=== PATIENT | female | born 1985 | race American Indian/Alaskan Native ===

== ENCOUNTER 2018-03-12 05:56 | Inpatient (IN) | payer MEDICAID, OTHER ==
[2018-03-12] MEDS ORDERED: BICITRA PO ONE (06:08)
[2018-03-12] MEDS ORDERED: REGLAN IV ONE (06:08)
[2018-03-12] MEDS ORDERED: PEPCID IV ONE (06:08)
[2018-03-12] MEDS: LACTATED RINGERS 1,000 ML IV SCH ×2 (06:35→07:46)
[2018-03-12] MEDS ORDERED: PITOCin/NS 20 UNIT/1000ML DRIP 20 UNITS/1,000 ML BAG IV SCH (07:00)
[2018-03-12] MEDS ORDERED: ANCEF/STERILE WATER 2 GM/20 ML 2 GM/20 ML SYRINGE IV NR (07:00)
--- NOTE | 2018-03-12 07:21 | Anesthesia Consultation ---
Anesthesia Consult and Med Hx Date of service: 03/12/18 - Airway Anesthetic Teeth Evaluation: Good ROM Head & Neck: Adequate Mental/Hyoid Distance: Adequate Mallampati Class: Class III Intubation Access Assessment: Possibly Difficult - Pre-Operative Health Status ASA Pre-Surgery Classification: ASA3 Proposed Anesthetic Plan: Epidural, Spinal - Pulmonary Hx Asthma: No COPD: No Hx Pneumonia: No - Cardiovascular System Hx Hypertension: No - Central Nervous System Hx Seizures: No Hx Psychiatric Problems: No - Endocrine Hx Renal Disease: No Hx End Stage Renal Disease: No Hx Hypothyroidism: No Hx Hyperthyroidism: No - Hematic Hx Anemia: No Hx Sickle Cell Disease: No - Other Systems Hx Alcohol Use: No Hx Obesity: Yes (BMI 43.9)
--- NOTE | 2018-03-12 07:22 | Anesthesia Day of Surgery ---
Anesthesia Day of Surgery - Day of Surgery Patient Examined: Yes Patient H&P Reviewed: Yes Patient is NPO: Yes
[2018-03-12 07:46] LABS: Basophils % (Auto) 0.7 % (0.0-1.8); Eosinophils # (Auto) 0.1 K/mm3 (0.0-0.4); Eosinophils % (Auto) 1.4 % (0.0-4.3); Hematocrit 36.4 % (30.3-42.9); Hemoglobin 12.4 gm/dl (10.1-14.3); Lymphocytes # (Auto) 2.4 K/mm3 (1.2-5.4); Lymphocytes % (Auto) 39.4 % (13.4-35.0); Mean Corpuscular HGB Conc 34 % (30-34); Mean Corpuscular Hemoglobin 30 pg (28-32); Mean Corpuscular Volume 86 fl (79-97); Monocytes # (Auto) 0.8 K/mm3 (0.0-0.8); Monocytes % (Auto) 13.5 % (0.0-7.3); Platelet Count 165 K/mm3 (140-440); Red Blood Count 4.21 M/mm3 (3.65-5.03); Red Cell Distribution Width 13.5 % (13.2-15.2)
--- NOTE | 2018-03-12 07:58 | History and Physical Report ---
History of Present Illness Date of examination: 03/12/18 Date of admission: 03/12/18 05:56 Chief complaint: Induction of labor History of present illness: Pt is a 32 yo BF EDC 03/18/18; EGA 39 1/7 weeks presented for C Section, but after further review of her records and [facility] report, there was no indication for C Section. She will therefore be admitted for induction of labor. She received care at [facility] since 7 weeks and course has been unremarkable except for Morbid Obesity - followed by [facility] who recommended delivery at 39 weeks. records are available and GBS is Negative. Past History Past Medical History: no pertinent history Past Surgical History: other (Laparoscopic salpingectomy for ectopic ) Family/Genetic History: none Social history: no significant social history, single - Obstetrical History Expected Date of Delivery: 03/18/18 Actual Gestation: 39 Week(s) 1 Day(s) : 1 Medications and Allergies Allergies Allergy/AdvReac Type Severity Reaction Status Date / Time No Known Allergies Allergy Verified 01/06/15 14:19 Home Medications Medication Instructions Recorded Confirmed Last Taken Type Tablet 1 tab PO QDAY 01/06/15 01/06/15 01/06/15 12:00 History HYDROcodone/APAP 5-325 [[place] 1 each PO Q6HR PRN #30 tablet 01/13/15 Unknown Rx 5/325] Cyclobenzaprine [Flexeril] 10 mg PO TID PRN #20 tablet 02/15/16 Unknown Rx Ibuprofen [Motrin] 600 mg PO Q8H PRN #30 tablet 02/15/16 Unknown Rx Active Meds: Active Medications Diphenhydramine HCl (Benadryl) 12.5 mg IV Q2H PRN PRN Reason: Itching Hydromorphone HCl (Dilaudid) 0.5 mg IV Q5M PRN PRN Reason: Breakthrough Pain Stop: 03/12/18 14:00 Cefazolin Sodium (Ancef/Sterile Water 2 Gm/20 Ml) 2 gm in 20 mls @ 80 mls/hr IV PREOP NR; Protocol Stop: 03/12/18 23:45 Lactated Ringer's (Lactated Ringers) 1,000 mls @ 2,250 mls/hr IV PREOP NAFISA Stop: 03/13/18 07:27 Last Admin: 03/12/18 07:46 Dose: 2,250 mls/hr Oxytocin/Sodium Chloride (Pitocin/Ns 20 Unit/1000ml Drip) 20 units in 1,000 mls @ 0 mls/hr IV TITR NAFISA Ketorolac Tromethamine (Toradol) 30 mg IV Q6H PRN PRN Reason: Pain, Moderate (4-6) Stop: 03/17/18 07:59 Naloxone HCl (Narcan 0.4 Mg/1 Ml) 0.2 mg IV Q2MIN PRN PRN Reason: Res Rate </= 8 or 02 SAT < 92% Ondansetron HCl (Zofran) 4 mg IV Q8H PRN PRN Reason: Nausea And Vomiting Promethazine HCl (Phenergan) 25 mg PO Q6H PRN PRN Reason: Nausea And Vomiting Promethazine HCl (Phenergan) 25 mg [place] Q6H PRN PRN Reason: Nausea And Vomiting Sodium Chloride (Sodium Chloride Flush Syringe 10 Ml) 10 ml IV PRN PRN PRN Reason: flush Review of Systems All systems: negative - Vital Signs Vital signs: Vital Signs Temp Pulse Resp BP Pulse Ox 98.8 F 85 18 119/77 99 03/12/18 06:22 03/12/18 06:22 03/12/18 06:22 03/12/18 06:22 03/12/18 06:22 Temp Pulse Resp BP Pulse Ox 98.8 F 82 18 119/77 99 03/12/18 06:22 03/12/18 06:56 03/12/18 06:22 03/12/18 06:25 03/12/18 06:56 - Physical Exam Breasts: Positive: deferred Cardiovascular: Regular rate Lungs: Positive: Clear to auscultation Abdomen: Positive: normal appearance Genitourinary (Female): Positive: normal external genitalia Vagina: Positive: normal moisture Uterus: Positive: enlarged Extremities: Positive: normal - Obstetrical FHR: category 1 Uterine Contraction Monitor Mode: External Cervical Dilatation: 1 (per nurse) Cervical Effacement Percentage: 50 (per nurse) Uterine Contraction Pattern: Irregular Results Result Diagrams: 03/12/18 06:35 Abnormal lab results 03/12/18 Range/Units 06:35 [place] % (Auto) 13.5 H (0.0-7.3) % All other labs normal. Assessment and Plan - Patient Problems (1) 39 weeks gestation of Onset Date: 03/12/18 Current Visit: Yes Status: Acute Plan to address problem: A: IUP @ 39 1/7 weeks Morbid obesity P: Admit to L&D for cervidil/pitocin induction of labor (2) Morbid obesity Onset Date: 03/12/18 Current Visit: Yes Status: Acute
[2018-03-12] MEDS ORDERED: PHENERGAN PO PRN (08:00)
[2018-03-12] MEDS ORDERED: PHENERGAN PR PRN (08:00)
[2018-03-12] MEDS ORDERED: DILAUDID IV PRN (08:00)
[2018-03-12] MEDS ORDERED: SODIUM CHLORIDE FLUSH SYRINGE 10 ML IV PRN (08:00)
[2018-03-12] MEDS ORDERED: NARCAN 0.4 MG/1 ML IV PRN (08:00)
[2018-03-12] MEDS ORDERED: ZOFRAN IV PRN (08:00)
[2018-03-12] MEDS ORDERED: TORADOL IV PRN (08:00)
[2018-03-12] MEDS ORDERED: BENADRYL IV PRN (08:00)
[2018-03-12] MEDS ORDERED: CERVIDIL VG NR (10:30)
[2018-03-12] MEDS: TYLENOL PO PRN (21:30)
[2018-03-13] MEDS ORDERED: PITOCin/NS 30 UNIT/500ML 30,000 MILLIUNITS/500 ML BAG IV ONE (00:12)
[2018-03-13] MEDS ORDERED: SUBLIMAZE IV ONE (01:28)
[2018-03-13] MEDS: STADOL IV PRN ×2 (01:38→03:28)
[2018-03-13] MEDS: LACTATED RINGERS 1,000 ML IV SCH ×2 (05:11→05:42)
[2018-03-13] MEDS ORDERED: ePHEDrine SULFATE ONE (05:14)
[2018-03-13] MEDS ORDERED: NARCAN 2 MG/2 ML IV PRN (05:44)
[2018-03-13] MEDS ORDERED: ePHEDrine SULFATE IV PRN (05:44)
[2018-03-13] MEDS ORDERED: fentaNYL-BUPIV 2 MCG/ML-0.125% 200 MCG/100 ML BAG EPIDURAL SCH (06:00)
[2018-03-13] MEDS ORDERED: LACTATED RINGERS 1,000 ML ONE (09:28)
[2018-03-13] MEDS: TYLENOL PO PRN (09:40)
[2018-03-13] MEDS ORDERED: LACTATED RINGERS 1,000 ML IV SCH (10:00)
--- NOTE | 2018-03-13 10:10 | Progress Note ---
Assessment and Plan - Patient Problems (1) 39 weeks gestation of Onset Date: 03/12/18 Current Visit: Yes Status: Acute Plan to address problem: A: IUP @ 39 2/7 weeks Morbid obesity P: Continue pitocin induction of labor Expectant vaginal delivery (2) Morbid obesity Onset Date: 03/12/18 Current Visit: Yes Status: Acute Subjective - Subjective Date of service: 03/13/18 Principal diagnosis: IUP @ 39 2/7 weeks Interval history: Pt is a 32 yo BF EDC 03/18/18; EGA 39 2/7 weeks admitted for induction of labor due to Morbid Obesity. She received cervidil, followed by pitocin, and is currently on pitocin 8mu/min and gregor q 3 mins with epidural in place. Patient reports: loss of fluid (AROM clear fluid), movement normal, contractions, no new complaints, no vaginal bleeding Objective - Vital Signs Vital Signs: Vital Signs - 12hr 03/12/18 03/12/18 03/12/18 22:33 22:39 22:43 Temperature Pulse Rate 87 88 74 Respiratory Rate Blood Pressure Blood Pressure [Left] O2 Sat by Pulse 97 99 98 Oximetry 03/12/18 03/13/18 03/13/18 23:31 00:30 02:48 Temperature Pulse Rate 79 83 71 Respiratory Rate Blood Pressure 101/69 115/69 Blood Pressure [Left] O2 Sat by Pulse 96 Oximetry 03/13/18 03/13/18 03/13/18 03:29 03:35 05:56 Temperature 97.9 F Pulse Rate 68 68 88 Respiratory 18 Rate Blood Pressure 127/81 Blood Pressure 127/81 [Left] O2 Sat by Pulse 100 Oximetry 03/13/18 03/13/18 03/13/18 06:04 06:06 06:08 Temperature Pulse Rate 74 85 72 Respiratory Rate Blood Pressure 111/72 97/74 103/61 Blood Pressure [Left] O2 Sat by Pulse 100 Oximetry 03/13/18 03/13/18 03/13/18 06:09 06:10 06:12 Temperature Pulse Rate 78 80 74 Respiratory Rate Blood Pressure 106/61 103/59 Blood Pressure [Left] O2 Sat by Pulse 100 Oximetry 03/13/18 03/13/18 03/13/18 06:14 06:15 06:16 Temperature Pulse Rate 73 70 75 Respiratory Rate Blood Pressure 102/58 103/60 Blood Pressure [Left] O2 Sat by Pulse 100 Oximetry 03/13/18 03/13/18 03/13/18 06:18 06:19 06:20 Temperature Pulse Rate 75 76 73 Respiratory Rate Blood Pressure 101/58 98/55 Blood Pressure [Left] O2 Sat by Pulse 100 Oximetry 03/13/18 03/13/18 03/13/18 06:22 06:24 06:26 Temperature Pulse Rate 68 67 67 Respiratory Rate Blood Pressure 106/59 104/59 99/54 Blood Pressure [Left] O2 Sat by Pulse 100 Oximetry 03/13/18 03/13/18 03/13/18 06:28 06:30 06:32 Temperature Pulse Rate 71 70 73 Respiratory Rate Blood Pressure 102/56 104/56 105/57 Blood Pressure [Left] O2 Sat by Pulse 99 Oximetry 03/13/18 03/13/18 03/13/18 06:34 06:35 06:36 Temperature Pulse Rate 74 70 70 Respiratory Rate Blood Pressure 103/58 100/57 Blood Pressure [Left] O2 Sat by Pulse 100 Oximetry 03/13/18 03/13/18 03/13/18 06:38 06:40 06:42 Temperature Pulse Rate 67 67 68 Respiratory Rate Blood Pressure 106/60 101/58 101/60 Blood Pressure [Left] O2 Sat by Pulse 100 Oximetry 03/13/18 03/13/18 03/13/18 06:44 06:46 06:48 Temperature Pulse Rate 68 71 69 Respiratory Rate Blood Pressure 102/58 98/60 101/57 Blood Pressure [Left] O2 Sat by Pulse 100 Oximetry 03/13/18 03/13/18 03/13/18 06:50 06:52 06:54 Temperature Pulse Rate 65 69 70 Respiratory Rate Blood Pressure 98/56 106/65 107/64 Blood Pressure [Left] O2 Sat by Pulse 100 100 Oximetry 03/13/18 03/13/18 03/13/18 06:56 06:58 06:59 Temperature Pulse Rate 66 69 73 Respiratory Rate Blood Pressure 102/62 103/61 Blood Pressure [Left] O2 Sat by Pulse 100 Oximetry 03/13/18 03/13/18 03/13/18 07:00 07:02 07:04 Temperature Pulse Rate 70 68 70 Respiratory Rate Blood Pressure 100/58 98/58 95/58 Blood Pressure [Left] O2 Sat by Pulse Oximetry 03/13/18 03/13/18 03/13/18 07:05 07:06 07:08 Temperature Pulse Rate 73 63 69 Respiratory Rate Blood Pressure 107/66 104/64 Blood Pressure [Left] O2 Sat by Pulse 100 Oximetry 03/13/18 03/13/18 03/13/18 07:10 07:12 07:14 Temperature 98.3 F Pulse Rate 65 85 79 Respiratory 20 Rate Blood Pressure 103/62 99/61 103/65 Blood Pressure [Left] O2 Sat by Pulse 100 100 Oximetry 03/13/18 03/13/18 03/13/18 07:16 07:18 07:20 Temperature Pulse Rate 67 64 68 Respiratory Rate Blood Pressure 102/64 100/61 107/65 Blood Pressure [Left] O2 Sat by Pulse 100 Oximetry 03/13/18 03/13/18 03/13/18 07:22 07:24 07:26 Temperature Pulse Rate 80 79 68 Respiratory Rate Blood Pressure 109/67 102/58 102/61 Blood Pressure [Left] O2 Sat by Pulse 100 Oximetry 03/13/18 03/13/18 03/13/18 07:28 07:29 07:30 Temperature Pulse Rate 63 78 63 Respiratory Rate Blood Pressure 101/60 103/65 Blood Pressure [Left] O2 Sat by Pulse 100 Oximetry 03/13/18 03/13/18 03/13/18 07:32 07:34 07:39 Temperature Pulse Rate 64 70 66 Respiratory Rate Blood Pressure 98/61 100/61 Blood Pressure [Left] O2 Sat by Pulse 100 99 Oximetry 03/13/18 03/13/18 03/13/18 07:45 07:49 07:50 Temperature Pulse Rate 68 78 74 Respiratory Rate Blood Pressure 93/51 Blood Pressure [Left] O2 Sat by Pulse 100 100 Oximetry 03/13/18 03/13/18 03/13/18 07:55 08:00 08:04 Temperature Pulse Rate 69 72 66 Respiratory Rate Blood Pressure 95/55 Blood Pressure [Left] O2 Sat by Pulse 99 99 Oximetry 03/13/18 03/13/18 03/13/18 08:05 08:09 08:15 Temperature Pulse Rate 68 67 67 Respiratory Rate Blood Pressure Blood Pressure [Left] O2 Sat by Pulse 100 99 99 Oximetry 03/13/18 03/13/18 03/13/18 08:20 08:25 08:30 Temperature Pulse Rate 70 72 70 Respiratory Rate Blood Pressure 103/56 Blood Pressure [Left] O2 Sat by Pulse 99 100 100 Oximetry 03/13/18 03/13/18 03/13/18 08:34 08:36 08:40 Temperature Pulse Rate 70 67 66 Respiratory Rate Blood Pressure 99/56 Blood Pressure [Left] O2 Sat by Pulse 100 99 Oximetry 03/13/18 03/13/18 03/13/18 08:45 08:50 08:51 Temperature Pulse Rate 67 61 66 Respiratory Rate Blood Pressure 105/59 Blood Pressure [Left] O2 Sat by Pulse 100 100 Oximetry 03/13/18 03/13/18 03/13/18 08:55 09:00 09:04 Temperature Pulse Rate 67 66 72 Respiratory Rate Blood Pressure 101/61 Blood Pressure [Left] O2 Sat by Pulse 100 100 Oximetry 03/13/18 03/13/18 03/13/18 09:05 09:10 09:15 Temperature Pulse Rate 86 67 69 Respiratory Rate Blood Pressure Blood Pressure [Left] O2 Sat by Pulse 99 100 100 Oximetry 03/13/18 03/13/18 03/13/18 09:20 09:25 09:30 Temperature Pulse Rate 62 64 73 Respiratory Rate Blood Pressure 101/59 Blood Pressure [Left] O2 Sat by Pulse 100 100 100 Oximetry 03/13/18 03/13/18 03/13/18 09:35 09:40 09:45 Temperature Pulse Rate 67 65 62 Respiratory Rate Blood Pressure 104/64 Blood Pressure [Left] O2 Sat by Pulse 99 100 100 Oximetry 03/13/18 03/13/18 03/13/18 09:49 09:50 09:55 Temperature Pulse Rate 63 66 64 Respiratory Rate Blood Pressure 107/66 Blood Pressure [Left] O2 Sat by Pulse 100 100 Oximetry 03/13/18 03/13/18 03/13/18 10:00 10:05 10:10 Temperature Pulse Rate 85 62 62 Respiratory Rate Blood Pressure 104/67 Blood Pressure [Left] O2 Sat by Pulse 99 100 100 Oximetry - Exam Abdomen: Present: normal appearance, soft Uterus: Present: normal FHR: category 1 Uterine Contraction Monitor Mode: External Cervical Dilatation: 8 Cervical Effacement Percentage: 100 station: 0 Uterine Contraction Pattern: Regular Uterine Tone Measurement Phase: Contraction Uterine Contraction Intensity: Moderate - Labs Labs: Abnormal Labs 03/12/18 06:35 Lymph % (Auto) 39.4 H [place] % (Auto) 13.5 H Laboratory Tests 03/12/18 03/12/18 06:35 06:35 WBC 6.1 RBC 4.21 Hgb 12.4 Hct 36.4 MCV 86 MCH 30 MCHC 34 RDW 13.5 Plt Count 165 Lymph % (Auto) 39.4 H [place] % (Auto) 13.5 H Eos % (Auto) 1.4 Baso % (Auto) 0.7 Lymph # 2.4 [place] # 0.8 Eos # 0.1 Baso # 0.0 Seg Neutrophils % 45.0 Seg Neutrophils # 2.7 Blood Type A POSITIVE Antibody Screen Negative
--- NOTE | 2018-03-13 12:21 | Procedure Note ---
OB Delivery Note - Delivery Date of Delivery: 03/13/18 Surgeon: LAQUITA ORELLANA Estimated blood loss: 200cc - Vaginal Delivery presentation: vertex Delivery position: OA Delivery induction: cervidil Delivery augmentation: rupture of membranes, pitocin Delivery monitor: external FHT, external uterine Route of delivery: Delivery placenta: spontaneous Delivery cord: nuchal cord (x1), 3 umbilical vessels Episiotomy: none Delivery laceration: 1st degree, vaginal side wall Delivery repair: vicryl Anesthesia: epidural Delivery comments: Infant delivered OA and placed on Mom's chest for [id number] bonding and delayed cord clamping, cut by GrandMa - Infant A at 1 minute: 8 at 5 minutes: 9 Gender: Male (3120gms)
[2018-03-13] MEDS ORDERED: ZOFRAN IV PRN (12:24)
[2018-03-13] MEDS ORDERED: PHENERGAN PR PRN (12:24)
[2018-03-13] MEDS ORDERED: BENADRYL PO PRN (12:24)
[2018-03-13] MEDS ORDERED: MILK OF MAGNESIA PO PRN (12:24)
[2018-03-13] MEDS ORDERED: DULCOLAX PR PRN (12:24)
[2018-03-13] MEDS ORDERED: TYLENOL PO PRN (12:24)
[2018-03-13] MEDS ORDERED: PHENERGAN PO PRN (12:24)
[2018-03-13] MEDS ORDERED: LANSINOH TP PRN (12:24)
[2018-03-13] MEDS ORDERED: TUCKS PAD TP PRN (12:24)
[2018-03-13] MEDS ORDERED: SODIUM CHLORIDE FLUSH SYRINGE 10 ML IV NR (13:00)
[2018-03-13] MEDS ORDERED: PITOCin/NS 20 UNIT/1000ML DRIP 20 UNITS/1,000 ML BAG IV SCH (13:00)
[2018-03-13] MEDS ORDERED: TUCKS PAD TP ONE (16:00)
[2018-03-13] MEDS: MOTRIN PO SCH (18:10)
[2018-03-13] MEDS: COLACE PO SCH (23:15)
[2018-03-13] MEDS: FEOSOL PO SCH (23:15)
[2018-03-14 00:51] LABS: Hematocrit 33.1 % (30.3-42.9); Hemoglobin 11.1 gm/dl (10.1-14.3)
[2018-03-14] MEDS: NORCO 5/325 PO PRN ×2 (05:47→13:00)
[2018-03-14] MEDS ORDERED: PRENATAL VITAMIN PO SCH (10:00)
[2018-03-14] MEDS: COLACE PO SCH ×2 (10:27→21:35)
[2018-03-14] MEDS: FEOSOL PO SCH ×2 (10:28→21:35)
[2018-03-14] MEDS: MOTRIN PO SCH ×2 (10:50→21:35)
[2018-03-14] MEDS ORDERED: BOOSTRIX IM ONE (12:24)
[2018-03-14] MEDS ORDERED: M-M-R II VACCINE SUB-Q ONE (12:24)
--- NOTE | 2018-03-14 14:54 | Progress Note ---
Assessment and Plan - Patient Problems (1) 39 weeks gestation of Onset Date: 03/12/18 Current Visit: Yes Status: Resolved (2) Morbid obesity Onset Date: 03/12/18 Current Visit: Yes Status: Chronic (3) (normal spontaneous vaginal delivery) Onset Date: 03/14/18 Current Visit: Yes Status: Resolved Plan to address problem: A: S/P - PPD #1 Doing well P: may go home tomorrow. Subjective - Subjective Date of service: 03/14/18 Principal diagnosis: s/p - PPD #1 Interval history: Pt is feeling well without complaints. Bleeding improved. Patient reports: appetite normal, voiding normally, pain well controlled, flatus , ambulating normally, no dizzy ambulation, no nauseated : doing well, nursing well, bottle feeding Objective - Vital Signs Latest vital signs: Vital Signs Temp Pulse Resp Resp BP 03/14/18 08:05 98.3 F 90 18 111/60 03/14/18 05:47 20 03/14/18 04:00 98.7 F 63 18 114/77 03/14/18 00:30 98.7 F 88 16 101/62 03/13/18 22:23 98.4 F 77 18 114/69 03/13/18 20:30 98.6 F 77 18 136/72 03/13/18 20:00 24 03/13/18 15:40 98.8 F 101 H 18 123/58 Intake and Output 03/13/18 03/14/18 03/14/18 22:59 06:59 14:59 Intake Total 240 600 Output Total 1 Balance 239 600 Intake: Oral 240 600 Output: Urine 1 Void 1 Other: Total, Intake Amount 240 360 Total, Output Amount 1 # Voids Void 900 1 - Exam Breasts: Present: deferred Cardiovascular: Present: Regular rate Lungs: Present: Clear to auscultation Abdomen: Present: normal appearance, soft Uterus: Present: normal, firm, fundal height below umbilicus Extremities: Present: normal - Labs Labs: Laboratory Tests 03/12/18 03/12/18 03/14/18 06:35 06:35 00:18 WBC 6.1 RBC 4.21 Hgb 12.4 11.1 Hct 36.4 33.1 MCV 86 MCH 30 MCHC 34 RDW 13.5 Plt Count 165 Lymph % (Auto) 39.4 H [place] % (Auto) 13.5 H Eos % (Auto) 1.4 Baso % (Auto) 0.7 Lymph # 2.4 [place] # 0.8 Eos # 0.1 Baso # 0.0 Seg Neutrophils % 45.0 Seg Neutrophils # 2.7 Blood Type A POSITIVE Antibody Screen Negative
--- NOTE | 2018-03-14 14:55 | Discharge Summary ---
Providers - Providers Date of Admission: 03/12/18 05:56 Date of discharge: 03/15/18 Attending physician: LAQUITA ORELLANA Primary care physician: LAQUITA ORELLANA Hospitalization Reason for admission: induction of labor, IUP at term Delivery: Episiotomy: none Laceration: 1st degree Other procedures: none complications: none Discharge diagnosis: IUP at term delivered baby: male Hospital course: Unremarkable. Condition at discharge: Good Disposition: DC-01 TO HOME OR SELFCARE - Discharge Diagnoses (1) 39 weeks gestation of Status: Resolved (2) Morbid obesity Status: Chronic (3) (normal spontaneous vaginal delivery) Status: Resolved Plan - Discharge Medications Prescriptions: Ibuprofen [Motrin 600 MG tab] 600 mg PO Q6H #30 tablet Vit-Fe Fumar-FA [ Vitamin] 1 each PO QDAY #30 tablet - Provider Discharge Summary Activity: routine, no sex for 6 weeks, no heavy lifting 4 weeks, no strenuous exercise Diet: routine Instructions: routine Additional instructions: [] Smoking cessation referral if applicable(refer to patient education folder for contact #) [] Refer to [facility] Booklet Call your doctor immediately for: * Fever > 100.5 * Heavy vaginal bleeding ( >1 pad per hour) * Severe persistent headache * Shortness of breath * Reddened, hot, painful area to leg or breast * Drainage or odor from incision. * Keep incision clean and dry at all times and follow doctor's instructions regarding bathing/showering - Follow up plan Follow up: LAQUITA ORELLANA MD [Primary Care Provider] - 6 Weeks ALEJANDRO OCHOA CNM [Advanced Practice Nurse] - 6 Weeks
[2018-03-15] MEDS: MOTRIN PO SCH ×2 (01:10→14:57)
[2018-03-15] MEDS: NORCO 5/325 PO PRN (01:11)
[2018-03-15 18:09] VITALS: BP 101/76
== END 2018-03-15 16:00 | disposition home or self-care (01) | DRG 775 ==
LOC: APU 05:56 → LD 09:22 → OB 03-13 13:58
PROVIDERS: ADMIT Obstetrics & Gynecology; ATTEND Obstetrics & Gynecology
PROC: 10E0XZZ Delivery of Products of Conception, External Approach (ICD-10-PCS; principal; 2018-03-13)
PROC: 0HQ9XZZ Repair Perineum Skin, External Approach (ICD-10-PCS; 2018-03-13)
PROC: 3E0R3BZ Introduction of Anesthetic Agent into Spinal Canal, Percutaneous Approach (ICD-10-PCS; 2018-03-13)
PROC: 00HU33Z Insertion of Infusion Device into Spinal Canal, Percutaneous Approach (ICD-10-PCS; 2018-03-13)
PROC: 3E0234Z Introduction of Serum, Toxoid and Vaccine into Muscle, Percutaneous Approach (ICD-10-PCS; 2018-03-14)
DX: O69.81X0 Labor and delivery complicated by cord around neck, without compression, not applicable or unspecified (principal); O71.4 Obstetric high vaginal laceration alone; E66.01 Morbid (severe) obesity due to excess calories; O99.214 Obesity complicating childbirth; Z3A.39 39 weeks gestation of pregnancy; Z68.41 Body mass index [BMI] 40.0-44.9, adult; Z37.0 Single live birth; Z23 Encounter for immunization
CPT/HCPCS: 36415; 85014; 85018; 85025; 86850; 86900; 86901; 99211; A6250; G0463; J0595; J0690; J2590; J2765; J7120